=== PATIENT | female | born 1960 | race Caucasian/White ===

== ENCOUNTER 2017-06-08 05:27 | Emergency (ER) | payer SELFPAY ==
--- NOTE | 2017-06-08 06:15 | EDM.PDOC ---
ED HPI GENERAL MEDICAL PROBLEM - General Chief Complaint: General Stated Complaint: stroke Time Seen by Provider: 06/08/17 05:49 Source of Information: Reports: Patient History Limitations: Reports: No Limitations - History of Present Illness INITIAL COMMENTS - FREE TEXT/NARRATIVE: Patient presents with a numbness in left face, torso, arm and leg. Her left arm and leg feel like huge blocks of lead she says. When something touches her arm or leg it feels "prickly and painful". This started 11 hours ago last evening with the face and arm. She also has vertigo when she closes her eyes that started about the same time. Seven hours ago (midnight) she took an aspirin. She was diagnosed with diabetes and fibromyalgia two years ago. No chest pain. She says this painful sensation is not like her fibromyalgia and she hasn't had it before. - Related Data Allergies Allergy/AdvReac Type Severity Reaction Status Date / Time acetaminophen Allergy Vomiting Verified 06/08/17 06:05 [From Darvocet-N] ciprofloxacin [From Cipro] Allergy Rash Verified 06/08/17 06:05 ciprofloxacin HCl Allergy Rash Verified 06/08/17 06:05 [From Cipro] latex Allergy Hives Verified 06/08/17 06:05 Penicillins Allergy Respiratory Verified 06/08/17 06:05 Depression propoxyphene napsylate Allergy Vomiting Verified 06/08/17 06:05 [From Darvocet-N] ranitidine HCl [From Zantac] Allergy Vomiting Verified 06/08/17 06:05 Home Meds: Home Meds Thyroid [[place] Thyroid] 75 mg PO DAILY 10/06/15 [History] Aspirin 81 mg PO BRK 10/23/15 [History] Blood Sugar Diagnostic [Blood Glucose Test] 1 stick MISC BEDTIME 06/20/16 [ History] Escitalopram [Lexapro] 20 mg PO BEDTIME 06/20/16 [History] glipiZIDE [Glipizide Xl] 10 mg PO DAILY 06/20/16 [History] ALPRAZolam [Alprazolam] 1 mg PO DAILY PRN 06/08/17 [History] oxyCODONE HCl [Oxycodone HCl] 10 mg PO Q4H PRN 06/08/17 [History] Past Medical History HEENT History: Reports: Allergic Rhinitis, Impaired Vision, Sinusitis Cardiovascular History: Reports: Afib Respiratory History: Reports: SOB Gastrointestinal History: Reports: GERD, Other (See Below) Other Gastrointestinal History: Blood in stool Genitourinary History: Reports: Urinary Incontinence 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: Dysfunctional Uterine Bleeding, Musculoskeletal History: Reports: Arthritis, Back Pain, Chronic, Fibromyalgia, Neck Pain, Chronic Neurological History: Reports: Headaches, Chronic, Migraines, Neuropathy, Peripheral, Other (See Below) Other Neuro History: Chronic fatigue syndrome Psychiatric History: Reports: Anxiety, Depression Endocrine/Metabolic History: Reports: Diabetes, Type II, Hypothyroidism Other Endocrine/Metabolic History: Diabetes diagnosed october 2015 Hematologic History: Reports: Anemia, B12 Deficiency, Blood Transfusion(s), Iron Deficiency Dermatologic History: Reports: Psoriasis - Infectious Disease History Infectious Disease History: Reports: None - Past Surgical History Female Surgical History: Reports: Section, Hysterectomy, Salpingo- Oophorectomy Social & Family History - Family History Cardiac: Reports: Heart Failure, DC Other Respiratory Family Hisory: Pulmonary fybrosis Endocrine/Metabolic: Reports: Diabetes, Type I Oncologic: Reports: Other (See Below) Other Oncologic Family History: skin - Tobacco Use Smoking Status *Q: Former Smoker Years of Tobacco use: 30 Packs/Tins Daily: 1 Used Tobacco, but Quit: No Month Tobacco Last Used: October 05, 2015 Second Hand Smoke Exposure: Yes - Alcohol Use Days Per Week of Alcohol Use: 0 - Recreational Drug Use Recreational Drug Use: No Drug Use in Last 12 Months: Yes Recreational Drug Type: Reports: Morphine, Xanax Recreational Drug Use Frequency: Daily ED ROS GENERAL - Review of Systems Review Of Systems: See Below Constitutional: Denies: Fever, Chills, Malaise, Weakness HEENT: Reports: Vertigo (when she closes her eyes). Denies: Ear Pain, Hearing Loss (no ringing or roaring but she noticed she seemed to be hearing strange noises coming from outside that didn't make sense like cars racing), Vision Change Respiratory: Denies: Shortness of Breath, Wheezing, Cough Cardiovascular: Denies: Chest Pain, Blood Pressure Problem, Lightheadedness, Syncope GI/Abdominal: Denies: Abdominal Pain, Diarrhea, Nausea, Vomiting : Denies: Dysuria, Flank Pain Musculoskeletal: Reports: Other (except as noted in HPI). Denies: Neck Pain, Shoulder Pain, Arm Pain, Back Pain Skin: Denies: Cyanosis, Jaundice, Mottled, Pallor, Diaphoresis Neurological: Reports: Tingling (left side of her body). Denies: Headache, Seizure, Syncope Psychiatric: Reports: Confusion (her brain doesn't work as well for the last two years she says) ED EXAM, GENERAL - Physical Exam Exam: See Below Exam Limited By: No Limitations General Appearance: Alert, WD/WN, Anxious Eye Exam: Bilateral Eye: EOMI, Normal Inspection (full visual melton bilat), PERRL Ears: Normal External Exam, Hearing Grossly Normal Nose: Normal Inspection, No Blood Throat/Mouth: Normal Inspection, Normal Lips, Normal Voice, No Airway Compromise Head: Atraumatic, Normocephalic Neck: Normal Inspection, Supple, Non-Tender, Full Range of Motion. No: Carotid Bruit Respiratory/Chest: No Respiratory Distress, Lungs Clear, Normal Breath Sounds, No Accessory Muscle Use Cardiovascular: Regular Rate, Rhythm, No Edema, No Gallop, No Murmur Peripheral Pulses: 2+: Carotid (L), Carotid (R), Radial (L), Radial (R) GI/Abdominal: Normal Bowel Sounds, Soft, Non-Tender, No Organomegaly Back Exam: Other (light touch on the back felt prickly and painful from midline to the left but normal on the right) Extremities: Normal Range of Motion (with 4.5/5 strength symmetrically UE/LE; good and symmetric plantar flexion/dorsiflexion), No Pedal Edema, Normal Capillary Refill Neurological: Alert, Oriented, CN II-XII Intact, Sensory/Motor Deficit (No motor deficits. Decreased sensation most pronounced in the Ulnar nerve distribution of left arm and hand with complete numbness along the ulnar forearm and otherwise tingly and decreased sensation. The sharp/prickly/ painful sensation to touch involves the entire left lateral body from face/scalp /ear to arm, hand, thigh, leg foot sparing only the lateral abdomen which feels normal down to the waist. The painful sensation fades to decreased sensation of anterior, posterior, medial thigh.), Other (Romberg is quite unsteady but she manages to stay upright although she did grab onto my arm for support.) Psychiatric: Anxious, Tearful (at times) Skin Exam: Warm, Dry, Intact, Normal Color, No Rash Course - Vital Signs Last Recorded V/S: Last Vital Signs Temp 98.6 F 06/08/17 06:30 Pulse 83 06/08/17 07:38 Resp 13 06/08/17 07:38 BP 136/75 06/08/17 07:38 Pulse Ox 97 06/08/17 07:38 - Orders/Labs/Meds Orders: Active Orders 24 hr Category Date Time Status EKG Documentation Completion [RC] ASDIRECTED Care 06/08/17 06:14 Ordered Head wo Cont [CT] Stat Exams 06/08/17 06:10 Ordered EKG 12 Lead [EK] Routine Ther 06/08/17 06:10 Ordered Labs: Laboratory Tests 06/08/17 06/08/17 Range/Units 06:00 06:00 WBC 8.6 (5.0-10.0) 10^3/uL RBC 5.32 (3.80-5.50) 10^6/uL Hgb 14.9 (12.0-16.0) g/dL Hct 45.6 (37.0-47.0) % MCV 85.7 (82.0-92.0) fL MCH 28.1 (27.0-31.0) pg MCHC 32.8 (32.0-36.0) g/dL RDW 13.8 (11.5-14.5) % Plt Count 255 (150-300) 10^3/uL MPV 9.7 (7.4-10.4) fL Neut % (Auto) 59.9 (50.0-70.0) % Lymph % (Auto) 30.1 (20.0-40.0) % [place] % (Auto) 8.4 H (2.0-8.0) % Eos % (Auto) 1.0 (1.0-3.0) % Baso % (Auto) 0.6 (0.0-1.0) % Neut # (Auto) 5.1 (2.5-7.0) 10^3/uL Lymph # (Auto) 2.6 (1.0-4.0) 10^3/uL [place] # (Auto) 0.7 (0.1-0.8) 10^3/uL Eos # (Auto) 0.1 (0.1-0.3) 10^3/uL Baso # (Auto) 0.1 (0.0-0.1) 10^3/uL Sodium 135 L (136-145) mmol/L Potassium 3.7 (3.3-5.3) mmol/L Chloride 100 (98-115) mmol/L Carbon Dioxide 18.6 L (21.0-32.0) mmol/L BUN 13 (6-25) mg/dL Creatinine 0.72 (0.51-1.17) mg/dL Est Cr Clr Drug Dosing TNP Estimated GFR (MDRD) > 60 mL/min Glucose 159 H (70-110) mg/dL Calcium 9.4 (8.7-10.3) mg/dL Total Bilirubin 1.0 (0.2-1.0) mg/dL AST 26 (15-37) U/L ALT 41 (12-78) U/L Alkaline Phosphatase 81 (46-116) IU/L Troponin I 0.08 H* (0.00-0.070) ng/mL Total Protein 8.2 (6.4-8.2) g/dL Albumin 4.28 (3.00-4.80) g/dL - Re-Assessments/Exams Free Text/Narrative Re-Assessment/Exam: 06/08/17 07:03 The NIH stroke scale is a score of 2. EKG shows NSR. 06/08/17 07:46 CT of head is normal. Troponin is 0.08. Discussed findings with patient and at her request I discussed with Dr. Claire Servin prior to calling neurologist. Then discussed with neurologist at [facility], Dr. Palma who accepted for transfer to ER for MRI and further evaluation for stroke. She is outside the TPA window but within a 24 hour window for some treatment options. Patient will be transferred via ALS ambulance. Patient has remained stable throughout ER course with persistence of symptoms. 06/08/17 08:07 Patient also displayed a left ulnar nerve impairment that was more pronounced than the sensation of the rest of left UE exam although this was not the limit of the abnormality. Romberg exam shows increasing impairment of ambulation compared to when she arrived. Departure - Departure Time of Disposition: 07:44 Disposition: DC/Tfer to Acute Hospital 02 Condition: Good Clinical Impression: Numbness on left side - Discharge Information Referrals: PCP,Unknown [Primary Care Provider] - Forms: ED Department Discharge, Interfacility Transfer EMTNICK - My Orders Last 24 Hours: My Active Orders 06/08/17 06:10 Head wo Cont [CT] Stat EKG 12 Lead [EK] Routine 06/08/17 06:14 EKG Documentation Completion [RC] ASDIRECTED - Assessment/Plan Last 24 Hours: My Active Orders 06/08/17 06:10 Head wo Cont [CT] Stat EKG 12 Lead [EK] Routine 06/08/17 06:14 EKG Documentation Completion [RC] ASDIRECTED
[2017-06-08 06:46] LABS: CHLORIDE,CL 100 mmol/L (98-115); SODIUM,NA 135 mmol/L (136-145)
[2017-06-08 07:40] VITALS: BP 136/75
== END 2017-06-08 08:15 ==
LOC: KA.ED 05:27
DX: R20.0 Anesthesia of skin (principal); K21.9 Gastro-esophageal reflux disease without esophagitis; F32.9 Major depressive disorder, single episode, unspecified; E03.9 Hypothyroidism, unspecified; E11.42 Type 2 diabetes mellitus with diabetic polyneuropathy; Z86.2 Personal history of diseases of the blood and blood-forming organs and certain disorders involving the immune mechanism; Z87.891 Personal history of nicotine dependence; Z79.82 Long term (current) use of aspirin; Z79.84 Long term (current) use of oral hypoglycemic drugs; Z79.899 Other long term (current) drug therapy; Z88.0 Allergy status to penicillin; Z88.6 Allergy status to analgesic agent; Z88.1 Allergy status to other antibiotic agents; Z88.8 Allergy status to other drugs, medicaments and biological substances
CPT/HCPCS: 36415; 70450; 80053; 84484; 85025; 93005; 99285